=== PATIENT | male | born 1950 | race Caucasian/White ===

== ENCOUNTER 2022-11-19 13:13 | Emergency (ER) | payer OTHER ==
[2022-11-19] MEDS ORDERED: DUONEB 0.5-3 MG/3 ml Neb IH ONE ×2 (14:02→14:15)
[2022-11-19] MEDS ORDERED: solu-MEDROL 125 MG, Sterile H2O 10 ml 2 ML IV ONE ×2 (14:02)
--- NOTE | 2022-11-19 14:08 | ERPHSYRPT ---
- History of Present Illness Time Seen by Provider: 11/19/22 13:18 Source: patient Exam Limitations: no limitations Patient Subjective Stated Complaint: C/O SOB since yesterday that is getting worse. Patient reports chronic bronchitis and is afraid his current symptoms may be bronchitis related. Triage Nursing Assessment: Patient ambulated back to ER without difficulties. Patient slightly SOB with ambulation/exertion but rebounded quickly once on bed. Patient can't lay flat related to SOB though. No cough. Skin tone normal. 02 sats 99% on room air. No wheezing noted. Physician History: 72 years old male with history of COPD presented in the ER with chief complaint of shortness of breath/tickly sensations in the chest with minimal productive cough since [place] felt there was a lot of smoke in the air. Patient reports since then having increasing symptoms of shortness of breath chest tightness but no wheezing or pain. Reports having similar symptoms in the past with COPD exacerbation. Denies any palpitations, fever or chills. No lower extremity swelling or pain. Timing/Duration: yesterday, gradual onset, worse Activities at Onset: activity, rest Severity of Dyspnea-Max: moderate Severity of Dyspnea-Current: mild Possible Cause: allergen exposure, smoke exposure Modifying Factors: Worsens With: exertion Associated Symptoms: cough, chest pain/discomfort, tightness, No edema, No leg swelling, No muscle spasms feet, No muscle spasms hands, No painful breathing, No productive cough Allergies/Adverse Reactions: codeine Adverse Reaction (Verified 11/19/22 13:25) Nausea and Vomiting morphine Adverse Reaction (Verified 11/19/22 13:25) Nausea and Vomiting Home Medications: Albuterol Sulfate [Albuterol Sulfate Hfa] 2 puff PO Q4H PRN PRN 11/19/22 [History] Amlodipine Besylate 5 mg [Norvasc 5 mg] 1 tab PO DAILY 11/19/22 [History] Fluticasone Propion/Salmeterol [Wixela 250-50 Inhub] 1 puff PO BID 11/19/22 [History] Hx Tetanus, Diphtheria Vaccination/Date Given: Yes Hx Influenza Vaccination/Date Given: No Hx Pneumococcal Vaccination/Date Given: Yes Immunizations Up to Date: Yes Travel Risk - International Travel Have you traveled outside of the country in past 3 weeks: No - Coronavirus Screening Are you exhibiting any of the following symptoms?: Yes Symptoms: Shortness of Breath Close contact with a COVID-19 positive Pt in past 14-21 Days: No - Vaccine Status Have you recieved a Covid-19 vaccination: No - Review of Systems Constitutional: No Symptoms Eyes: No Symptoms Ears, Nose, & Throat: No Symptoms Respiratory: Cough, Dyspnea Cardiac: No Symptoms Abdominal/Gastrointestinal: No Symptoms Genitourinary Symptoms: No Symptoms Musculoskeletal: No Symptoms Neurological: No Symptoms Psychological: No Symptoms Endocrine: No Symptoms Hematologic/Lymphatic: No Symptoms - Past Medical History Pertinent Past Medical History: Yes Cardiac History: Hypertension Respiratory History: Bronchitis, COPD GI Medical History: GERD, Gallbladder Disease - Past Surgical History Past Surgical History: Yes Gastrointestinal: Cholecystectomy, Other Male Surgical History: Vasectomy Other Surgical History: node removed from finger, rena surgery - Social History Smoking Status: Former smoker Exposure to second hand smoke: No Drug Use: none Patient Lives Alone: No - Nursing Vital Signs Nursing Vital Signs: Initial Vital Signs Pulse Rate 62 11/19/22 13:23 Respiratory Rate 17 11/19/22 13:23 Blood Pressure 155/85 11/19/22 13:23 O2 Sat by Pulse Oximetry 98 11/19/22 13:23 Pain Scale Pain Intensity 0 - Physical Exam General Appearance: no apparent distress, alert Eye Exam: PERRL/EOMI Ears, Nose, Throat Exam: hearing grossly normal, normal ENT inspection Neck Exam: normal inspection, non-tender, supple, full range of motion Respiratory Exam: normal breath sounds, lungs clear Cardiovascular/Chest Exam: normal heart sounds, regular rate/rhythm Abdominal/Gastrointestinal Exam: soft, normal bowel sounds, No tenderness Extremity Exam: non-tender, normal range of motion, No calf tenderness, No taniya's sign Neurologic Exam: alert, oriented x 3, cooperative Skin Exam: normal color SpO2 Interpretation: normal SpO2: 99 O2 Delivery: Room Air - Course EKG Interpreted by Me: RATE ([id number]), Sinus Rhythm, NORMAL AXIS, NORMAL INTERVALS, NORMAL QRS Ordered Tests: Active Orders 24 hr Category Date Time Status Alloy Weigher STAT Care 11/19/22 14:02 Active EKG-ER Only STAT Care 11/19/22 14:02 Active CHEST 1 VIEW (PORTABLE) Stat Exams 11/19/22 14:02 Taken CBC W DIFF Stat Lab 11/19/22 14:10 Completed CMP Stat Lab 11/19/22 14:10 Completed Lactic Acid Stat Lab 11/19/22 14:12 Completed MAGNESIUM Stat Lab 11/19/22 14:10 Completed NT PRO BNPII Stat Lab 11/19/22 14:10 Completed TROPONIN Q4H Lab 11/19/22 14:10 Completed TROPONIN Q4H Lab 11/19/22 18:15 Ordered TROPONIN Q4H Lab 11/19/22 22:15 Ordered Respiratory Therapy Assessment DAILY RT 11/19/22 14:19 Active Medication Summary Discontinued Medications Generic Name Dose Route Start Last Admin Trade Name Freq PRN Reason Stop Dose Admin Albuterol/Ipratropium 3 ml 11/19/22 14:02 11/19/22 14:16 Ipratropium/Albuterol Sulfate 3 Ml Ampul.Neb IH 11/19/22 14:03 3 ml STAT ONE Administration Albuterol/Ipratropium Confirm 11/19/22 14:15 Ipratropium/Albuterol Sulfate 3 Ml Ampul.Neb Administered 11/19/22 14:16 Dose 3 ml IH .STK-MED ONE Methylprednisolone Sodium 0 mg 11/19/22 14:02 11/19/22 14:15 Succinate 125 mg/ Sterile IV 11/19/22 14:03 125 mg Water 2 ml STAT ONE Administration Methylprednisolone Sodium Succinate Confirm 11/19/22 14:14 Methylprednis Sod Succ 125 Mg/2 Ml Vial Administered 11/19/22 14:15 Dose 125 mg .ROUTE .STK-MED ONE Sterile Water Confirm 11/19/22 14:14 Water For Injection,Sterile 10 Ml Vial Administered 11/19/22 14:15 Dose 10 ml IJ .STK-MED ONE Lab/Rad Data: Laboratory Result Diagrams 11/19/22 14:10 11/19/22 14:10 Laboratory Results 11/19/22 11/19/22 11/19/22 Range/Units 14:12 14:10 14:10 WBC (4.0-10.5) x10^3/uL RBC (4.1-5.6) x10^6/uL Hgb (12.5-18.0) g/dL Hct (42-50) % MCV (78-100) fL MCH (26-32) pg MCHC (32-36) g/dL RDW (11.5-14.0) % Plt Count (150-450) x10^3/uL MPV (7.5-11.0) fL Gran % (36.0-66.0) % Immature Gran % (Auto) (0.00-0.4) % Nucleat RBC Rel Count (0.00-0.1) % Eos # (Auto) (0-0.5) x10^3/uL Immature Gran # (Auto) (0.00-0.03) x10^3u/L Absolute Lymphs (auto) (1.0-4.6) x10^3/uL Absolute Monos (auto) (0.0-1.3) x10^3/uL Absolute Nucleated RBC (0.00-0.01) x10^3u/L Lymphocytes % (24.0-44.0) % Monocytes % (0.0-12.0) % Eosinophils % (0.00-5.0) % Basophils % (0.0-0.4) % Absolute Granulocytes (1.4-6.9) x10^3/uL Basophils # (0-0.4) x10^3/uL Sodium (137-145) mmol/L Potassium (3.5-5.1) mmol/L Chloride (98-107) mmol/L Carbon Dioxide (22-30) mmol/L Anion Gap (5-15) MEQ/L BUN (9-20) mg/dL Creatinine (0.66-1.25) mg/dL Estimated GFR ML/MIN Glucose (74-106) mg/dL Lactic Acid 1.1 (0.4-2.0) Calcium (8.4-10.2) mg/dL Magnesium (1.6-2.3) mg/dL Total Bilirubin (0.2-1.3) mg/dL AST (17-59) U/L ALT (0-50) U/L Alkaline Phosphatase (38-126) U/L Troponin I < 0.012 (0.000-0.034) ng/mL NT-Pro-B Natriuret Pep 31.7 (<300) pg/mL Serum Total Protein (6.3-8.2) g/dL Albumin (3.5-5.0) g/dL 11/19/22 11/19/22 Range/Units 14:10 14:10 WBC 7.2 (4.0-10.5) x10^3/uL RBC 5.07 (4.1-5.6) x10^6/uL Hgb 14.3 (12.5-18.0) g/dL Hct 45.0 (42-50) % MCV 88.8 (78-100) fL MCH 28.2 (26-32) pg MCHC 31.8 L (32-36) g/dL RDW 13.3 (11.5-14.0) % Plt Count 259 (150-450) x10^3/uL MPV 10.1 (7.5-11.0) fL Gran % 72.8 H (36.0-66.0) % Immature Gran % (Auto) 0.3 (0.00-0.4) % Nucleat RBC Rel Count 0.0 (0.00-0.1) % Eos # (Auto) 0.15 (0-0.5) x10^3/uL Immature Gran # (Auto) 0.02 (0.00-0.03) x10^3u/L Absolute Lymphs (auto) 1.21 (1.0-4.6) x10^3/uL Absolute Monos (auto) 0.54 (0.0-1.3) x10^3/uL Absolute Nucleated RBC 0.00 (0.00-0.01) x10^3u/L Lymphocytes % 16.7 L (24.0-44.0) % Monocytes % 7.5 (0.0-12.0) % Eosinophils % 2.1 (0.00-5.0) % Basophils % 0.6 (0.0-0.4) % Absolute Granulocytes 5.27 (1.4-6.9) x10^3/uL Basophils # 0.04 (0-0.4) x10^3/uL Sodium 139 (137-145) mmol/L Potassium 4.0 (3.5-5.1) mmol/L Chloride 104 (98-107) mmol/L Carbon Dioxide 24 (22-30) mmol/L Anion Gap 15.3 H (5-15) MEQ/L BUN 15 (9-20) mg/dL Creatinine 0.87 (0.66-1.25) mg/dL Estimated GFR > 60.0 ML/MIN Glucose 117 H (74-106) mg/dL Lactic Acid (0.4-2.0) Calcium 9.1 (8.4-10.2) mg/dL Magnesium 2.3 (1.6-2.3) mg/dL Total Bilirubin 0.60 (0.2-1.3) mg/dL AST 37 (17-59) U/L ALT 57 H (0-50) U/L Alkaline Phosphatase 102 (38-126) U/L Troponin I (0.000-0.034) ng/mL NT-Pro-B Natriuret Pep (<300) pg/mL Serum Total Protein 7.6 (6.3-8.2) g/dL Albumin 4.4 (3.5-5.0) g/dL - Progress Progress: improved, re-examined Air Movement: good Progress Note: 11/19/22 14:07 72 years old male with history of COPD presented in the ER with chief complaint of shortness of breath/tickly sensations in the chest with minimal productive cough since yesterday [place] and felt there was a lot of smoke in the air. Patient reports since then having increasing symptoms of shortness of breath chest tightness but no wheezing or pain. Reports having similar symptoms in the past with COPD exacerbation. Denies any palpitations, fever or chills. No lower extremity swelling or pain. Patient has minimal to no wheezing, oxygen saturation around 98% on room air. Not in any distress. EKG is normal sinus rhythm with no acute ischemic changes. We will give him DuoNeb and Solu-Medrol, will obtain chest x-ray and labs including troponin. 11/19/22 15:19 Patient is feeling much better on reevaluation and satting around 99% on room air. No wheezing or any distress. Chest x-ray questionable airspace disease on the right. No previous x-rays available to compare. Reviewed by me, official x-ray report is pending. Has normal white count, negative troponins. This has been going on since yesterday, I do not think it is cardiac and do not need to have second troponin. I believe it is COPD exacerbation, will treat with Z-Wojciech short course of steroid and nebs. Recommended outpatient follow-up early next week. Discussed signs symptoms of worsening needing return to ER which he seems understanding. Blood Culture(s) Obtained: No Antibiotics given: Yes Counseled pt/family regarding: lab results, diagnosis, need for follow-up, rad results Medical Desision Making - Diagnostic Testing Diagnostic test were ordered, analyzed, and reviewed by me: Yes Radiological Interpretation: Interpreted by me, Reviewed by me - Departure Departure Disposition: Home Clinical Impression: COPD exacerbation Condition: Stable Critical Care Time: No Referrals: [facility]OSPITAL,'S [Primary Care Provider] - Follow up with PCP 1 day Instructions: Chronic Obstructive Pulmonary Disease, Exacerbation of COPD (DC) Additional Instructions: Follow-up with your primary care for reevaluation. Return to ER for worsening shortness of breath or if having chest pain palpitations etc. Prescriptions: Prednisone 20 mg [Deltasone 20 mg] 60 mg PO DAILY 5 Days #15 tablet Albuterol/Ipratropium 3ml Neb* [DUONEB 0.5-3 MG/3 ml Neb] 3 ml IH Q4-6HPRN PRN 7 Days #30 amp PRN Reason: Shortness Of Breath/Wheezing Azithromycin 250 mg [Zithromax 250 MG TABLET] 250 mg PO ZPACK #6 tablet
[2022-11-19 14:14] LABS: Absolute Neutrophil Ct (ANC) 5.27 x10^3/uL (1.4-6.9); BASOPHIL % 0.6 % (0.0-0.4); Basophil (Absolute #) 0.04 x10^3/uL (0-0.4); Eosinophil % 2.1 % (0.00-5.0); Eosinophil (Absolute #) 0.15 x10^3/uL (0-0.5); Hemoglobin 14.3 g/dL (12.5-18.0); IMMATURE GRAN # 0.02 x10^3u/L (0.00-0.03); IMMATURE GRAN % 0.3 % (0.00-0.4); Lymphocyte (Absolute #) 1.21 x10^3/uL (1.0-4.6); Lymphocytes % 16.7 % (24.0-44.0); Mean Cell Volume 88.8 fL (78-100); Mean Corpuscular Hemoglobin 28.2 pg (26-32); Mean Corpuscular Hgb Concent. 31.8 g/dL (32-36); Mean Platelet Volume 10.1 fL (7.5-11.0); Monocyte (Absolute #) 0.54 x10^3/uL (0.0-1.3); Monocytes % 7.5 % (0.0-12.0); Neutrophil % 72.8 % (36.0-66.0); Platelet Count 259 x10^3/uL (150-450); Red Blood Count 5.07 x10^6/uL (4.1-5.6); Red Cell Distribution Width 13.3 % (11.5-14.0); White Blood Count 7.2 x10^3/uL (4.0-10.5)
[2022-11-19] MEDS ORDERED: solu-MEDROL ONE (14:14)
[2022-11-19] MEDS ORDERED: Sterile H2O 10 ml IJ ONE (14:14)
[2022-11-19 14:30] LABS: ALBUMIN 4.4 g/dL (3.5-5.0); ALKALINE PHOSPHATASE 102 U/L (38-126); ANION GAP 15.3 MEQ/L (5-15); BLOOD UREA NITROGEN 15 mg/dL (9-20); CHLORIDE 104 mmol/L (98-107); Calcium 9.1 mg/dL (8.4-10.2); Carbon Dioxide 24 mmol/L (22-30); Creatinine 1 0.87 mg/dL (0.66-1.25); EST GLOMERULAR FILTRATION RATE > 60.0 ML/MIN; Glucose 117 mg/dL (74-106); MAGNESIUM 2.3 mg/dL (1.6-2.3); SGOT/AST 37 U/L (17-59); SGPT/ALT 57 U/L (0-50); SODIUM 139 mmol/L (137-145); Total Protein 7.6 g/dL (6.3-8.2)
[2022-11-19 15:05] VITALS: BP 153/77; PULSE 61; O2SAT 99
--- NOTE | 2022-11-19 19:14 | XRAY ---
Indication: Cough. Comparison: None Portable apical lordotic chest demonstrates mediastinal, right hilar, and right lung calcified granulomas. Remaining heart and lungs unremarkable. Bony thorax intact. No acute findings.
== END 2022-11-19 16:14 | disposition home or self-care (01) ==
LOC: ED 13:13
DX: J44.1 Chronic obstructive pulmonary disease with (acute) exacerbation (principal); R06.02 Shortness of breath; R05.9 Cough, unspecified; I10 Essential (primary) hypertension; Z79.899 Other long term (current) drug therapy; Z28.310 Unvaccinated for COVID-19
CPT/HCPCS: 36000; 36415; 71045; 80053; 83605; 83735; 83880; 84484; 85025; 93005; 93041; 94640; 96374; 99284; J2930; A9270-GY

== ENCOUNTER 2023-10-21 01:46 | Emergency (ER) | payer OTHER ==
--- NOTE | 2023-10-21 02:09 | ERPHSYRPT ---
- History of Present Illness Time Seen by Provider: 10/21/23 02:08 Historian: patient, family Exam Limitations: no limitations Physician History: This is an obese 73-year-old white male patient who does his doctoring primarily with [facility] and presents with sudden onset of left flank pain that began yesterday. He did not fall or have acute traumatic injury to this area. Patient has never had this type of pain before. It is described as sharp and stabbing. Patient has had a cholecystectomy and Trav fundoplication in the past. Patient has a history of gastroesophageal reflux disease, hypertension, COPD and bronchitis. Patient does not have chest pain and he does not have shortness of breath. Timing/Duration: yesterday Activities at Onset: none Quality: sharpness, stabbing Pain Radiation: back (Left flank) Severity of Pain-Max: moderate Severity of Pain-Current: moderate Modifying Factors: Improves With: nothing Associated Symptoms: back (Left flank), nausea (Secondary to the severity of his pain) Previous symptoms: no prior history, no recent treatment Allergies/Adverse Reactions: codeine Adverse Reaction (Verified 10/21/23 01:47) Nausea and Vomiting morphine Adverse Reaction (Verified 10/21/23 01:47) Nausea and Vomiting Home Medications: Albuterol Sulfate [Albuterol Sulfate Hfa] 2 puff PO Q4H PRN PRN 11/19/22 [History] Amlodipine Besylate 5 mg [Norvasc 5 mg] 1 tab PO DAILY 11/19/22 [History] Aspirin [Aspirin EC] 81 mg PO DAILY 10/21/23 [History] Budesonide/Formoterol Fumarate [Budesonide-Formoterol 160-4.5] 2 puffs IH BID 10/21/23 [History] Meclizine HCl 12.5 mg PO DAILY PRN 10/21/23 [History] Multivitamin [Multivitamins] 1 each PO DAILY 10/21/23 [History] Omeprazole 40 mg PO DAILY 10/21/23 [History] Vit C/E/Zn/Coppr/Lutein/Zeaxan [Preservision Areds 2 Softgel] 1 each PO DAILY 10/21/23 [History] Hx Tetanus, Diphtheria Vaccination/Date Given: Yes Hx Influenza Vaccination/Date Given: No Hx Pneumococcal Vaccination/Date Given: Yes Travel Risk - International Travel Have you traveled outside of the country in past 3 weeks: No - Emerging Infectious Disease Are you exhibiting symptoms associated with any current EIDs: No - Review of Systems Constitutional: No Symptoms Eyes: No Symptoms Ears, Nose, & Throat: No Symptoms Respiratory: No Symptoms Cardiac: No Symptoms Abdominal/Gastrointestinal: Nausea Genitourinary Symptoms: Flank Pain (Left flank) Musculoskeletal: No Symptoms Skin: No Symptoms Neurological: No Symptoms Psychological: No Symptoms Endocrine: No Symptoms Hematologic/Lymphatic: No Symptoms Immunological/Allergic: No Symptoms All Other Systems: Reviewed and Negative - Past Medical History Pertinent Past Medical History: Yes Cardiac History: Hypertension Respiratory History: Bronchitis, COPD GI Medical History: GERD, Gallbladder Disease - Past Surgical History Past Surgical History: Yes Gastrointestinal: Cholecystectomy, Other Male Surgical History: Vasectomy Other Surgical History: node removed from finger, rena surgery - Social History Smoking Status: Former smoker Exposure to second hand smoke: No Drug Use: none Patient Lives Alone: No - Nursing Vital Signs Nursing Vital Signs: Initial Vital Signs Temperature 97.3 F 10/21/23 01:47 Pulse Rate 50 L 10/21/23 01:47 Respiratory Rate 24 10/21/23 01:47 Blood Pressure 154/84 10/21/23 01:47 O2 Sat by Pulse Oximetry 99 10/21/23 01:47 Pain Scale Pain Intensity [Left Lower 9 Back] Pain Intensity 0 - Physical Exam General Appearance: mild distress, alert, anxiety, obese Eye Exam: PERRL/EOMI, eyes nml inspection Ears, Nose, Throat Exam: normal ENT inspection, moist mucous membranes Neck Exam: normal inspection, non-tender, supple, full range of motion Respiratory Exam: normal breath sounds, lungs clear, airway intact, No chest tenderness, No respiratory distress Cardiovascular Exam: regular rate/rhythm, normal heart sounds, normal peripheral pulses Gastrointestinal/Abdomen Exam: soft, normal bowel sounds, tenderness (Left flank) Rectal Exam: not done Back Exam: normal inspection, CVA tenderness (Left side), decreased range of motion Extremity Exam: normal inspection, normal range of motion, pelvis stable Neurologic Exam: alert, oriented x 3, cooperative, sensor technician II-XII nml as tested, sensation nml Skin Exam: normal color, warm, dry Lymphatic Exam: No adenopathy SpO2 Interpretation: normal O2 Delivery: Room Air - Course Nursing assessment & vital signs reviewed: Yes Ordered Tests: Active Orders 24 hr Category Date Time Status IV Insertion STAT Care 10/21/23 02:10 Active ABDOMEN AND PELVIS W/0 CONTRAS [CT] Stat Exams 10/21/23 02:11 Completed AMYLASE Stat Lab 10/21/23 02:42 Completed CBC W DIFF Stat Lab 10/21/23 02:42 Completed CMP Stat Lab 10/21/23 02:42 Completed LIPASE Stat Lab 10/21/23 02:42 Completed UA W/RFX UR CULTURE Stat Lab 10/21/23 04:49 Completed Medication Summary Discontinued Medications Generic Name Dose Route Start Last Admin Trade Name Abelq PRN Reason Stop Dose Admin Sodium Chloride 1,000 mls @ 999 mls/hr 10/21/23 05:08 10/21/23 06:17 Sodium Chloride 0.9% 1000 Ml IV 10/21/23 06:08 Infused .Q1H1M STA Infusion Sodium Chloride Confirm 10/21/23 05:09 Sodium Chloride 0.9% 1000 Ml Administered 10/21/23 05:10 Dose 1,000 mls @ ud .ROUTE .STK-MED ONE Ketorolac Tromethamine 30 mg 10/21/23 02:10 10/21/23 02:16 Ketorolac Tromethamine 30 Mg/Ml Inj IV 10/21/23 02:11 30 mg STAT ONE Administration Ketorolac Tromethamine Confirm 10/21/23 02:16 Ketorolac Tromethamine 30 Mg/Ml Inj Administered 10/21/23 02:17 Dose 30 mg .ROUTE .STK-MED ONE Meperidine HCl 25 mg 10/21/23 02:17 10/21/23 02:27 Meperidine Hcl 25 Mg Syringe IV 10/21/23 02:18 Not Given STAT ONE Meperidine HCl Confirm 10/21/23 02:19 Meperidine Hcl 50 Mg/Ml Carp Administered 10/21/23 02:20 Dose 50 mg .ROUTE .STK-MED ONE Meperidine HCl 25 mg 10/21/23 02:28 10/21/23 02:29 Meperidine Hcl 50 Mg/Ml Carp IV 10/21/23 02:29 25 mg STAT ONE Administration Ondansetron HCl 4 mg 10/21/23 02:10 10/21/23 02:16 Ondansetron Hcl 4 Mg/2 Ml Vial IV 10/21/23 02:11 4 mg STAT ONE Administration Ondansetron HCl Confirm 10/21/23 02:15 Ondansetron Hcl 4 Mg/2 Ml Vial Administered 10/21/23 02:16 Dose 4 mg .ROUTE .STK-MED ONE Orphenadrine Citrate 60 mg 10/21/23 02:17 10/21/23 02:20 Orphenadrine Citrate 60 Mg/2 Ml Vial IV 10/21/23 02:18 60 mg STAT ONE Administration Orphenadrine Citrate Confirm 10/21/23 02:19 Orphenadrine Citrate 60 Mg/2 Ml Vial Administered 10/21/23 02:20 Dose 60 mg .ROUTE .STK-MED ONE Tamsulosin HCl 0.4 mg 10/21/23 05:08 10/21/23 05:10 Tamsulosin Hcl 0.4 Mg Cap PO 10/21/23 05:09 0.4 mg STAT ONE Administration Tamsulosin HCl Confirm 10/21/23 05:09 Tamsulosin Hcl 0.4 Mg Cap Administered 10/21/23 05:10 Dose 0.4 mg .ROUTE .STK-MED ONE Lab/Rad Data: Laboratory Result Diagrams 10/21/23 02:42 10/21/23 02:42 Laboratory Results 10/21/23 10/21/23 10/21/23 Range/Units 04:49 02:42 02:42 WBC 9.0 (4.0-10.5) x10^3/uL RBC 4.88 (4.1-5.6) x10^6/uL Hgb 13.8 (12.5-18.0) g/dL Hct 41.9 L (42-50) % MCV 85.9 (78-100) fL MCH 28.3 (26-32) pg MCHC 32.9 (32-36) g/dL RDW 13.4 (11.5-14.0) % Plt Count 274 (150-450) x10^3/uL MPV 9.8 (7.5-11.0) fL Gran % 68.3 H (36.0-66.0) % Immature Gran % (Auto) 0.4 (0.00-0.4) % Nucleat RBC Rel Count 0.0 (0.00-0.1) % Eos # (Auto) 0.20 (0-0.5) x10^3/uL Immature Gran # (Auto) 0.04 H (0.00-0.03) x10^3u/L Absolute Lymphs (auto) 1.78 (1.0-4.6) x10^3/uL Absolute Monos (auto) 0.79 (0.0-1.3) x10^3/uL Absolute Nucleated RBC 0.00 (0.00-0.01) x10^3u/L Lymphocytes % 19.9 L (24.0-44.0) % Monocytes % 8.8 (0.0-12.0) % Eosinophils % 2.2 (0.00-5.0) % Basophils % 0.4 (0.0-0.4) % Absolute Granulocytes 6.11 (1.4-6.9) x10^3/uL Basophils # 0.04 (0-0.4) x10^3/uL Sodium 138 (135-145) mmol/L Potassium 3.7 (3.5-5.1) mmol/L Chloride 105 (98-107) mmol/L Carbon Dioxide 24 (22-30) mmol/L Anion Gap 13.9 (5-15) MEQ/L BUN 17 (9-20) mg/dL Creatinine 1.02 (0.66-1.25) mg/dL Estimated GFR 78.6 ML/MIN Glucose 145 H (74-106) mg/dL Calcium 8.8 (8.4-10.2) mg/dL Total Bilirubin 0.50 (0.2-1.3) mg/dL AST 42 (17-59) U/L ALT 86 H (0-50) U/L Alkaline Phosphatase 108 (38-126) U/L Serum Total Protein 7.1 (6.3-8.2) g/dL Albumin 4.3 (3.5-5.0) g/dL Amylase 66 (30-110) U/L Lipase 52 (23-300) U/L Urine Color Dark Yellow (Yellow) Urine Appearance Clear (Clear) Urine pH 5.5 (4.6-8.0) Ur Specific [place] 1.025 (1.005-1.030) Urine Protein Trace A (Negative) Urine Glucose (UA) Negative (Negative) mg/dL Urine Ketones Trace A (Negative) Urine Blood Negative (Negative) Urine Nitrite Negative (Negative) Urine Bilirubin Negative (Negative) Urine Urobilinogen 1.0 A (0.2) mg/dL Ur Leukocyte Esterase Negative (Negative) U Hyaline Cast (Auto) NONE SEEN (0-2) /LPF Urine Microscopic RBC 3-5 (0-5) /HPF Urine Microscopic WBC 3-5 (0-5) /HPF Ur Epithelial Cells None Seen (None Seen) /HPF Urine Bacteria None Seen (None Seen) /HPF Urine Culture Reflexed NO (NO) - Progress Progress: improved, pain not gone completely Progress Note: 10/21/23 02:37 My medical decision making and the assignment of moderate complexity to this patient's medical issue is based on review of the patient's past medical history, review of the patient's medication list, review of patient drug allergy list, history present illness and physical findings on examination. The workup in this patient includes placement of intravenous line, infusion of normal saline solution, infusion of Demerol intravenously, infusion of Zofran intravenously, infusion of Toradol and fluids. In addition the patient received intravenous orphenadrine. We also ordered a CBC, CMP, urinalysis, amylase, lipase and CT scan of the abdomen pelvis without contrast. Differential diagnosis includes ureterolithiasis, pyelonephritis, urinary tract infection, pancreatitis, abdominal aortic aneurysm abnormality 10/21/23 06:47 I interpreted the patient's laboratory data results. Based on the laboratory data results, the patient does not have an acute, emergent medical issue. CT scan of the abdomen and pelvis was interpreted by the radiologist and I reviewed the impression. The impression states left distal ureteral calculus approximately 5 mm in size. There is mild hydroureter and mild hydronephrosis indicating obstructive uropathy. Counseled pt/family regarding: lab results, diagnosis, need for follow-up, rad results Medical Desision Making - Independent Historian Additional History obtained from: Spouse - Diagnostic Testing Diagnostic test were ordered, analyzed, and reviewed by me: Yes Radiological Interpretation: Reviewed by me, Teleradiologist Report - Risk of complications The pt has a mod risk of morbidity or mortality based on: Need for prescription drug management - Departure Departure Disposition: Home Clinical Impression: Left ureteral calculus Condition: Stable Critical Care Time: No Referrals: [facility]OSP[facility],'S [Primary Care Provider] - Follow up/PCP as directed Additional Instructions: Drink plenty of fluids. Take your medications as prescribed. Call the [facility] tomorrow, 10/22/2023, to make arrangements to be seen in urology clinic in the next 3 to 5 days. If your pain worsens, you may always return to our emergency department. However, we do not have urology on staff and you may need to go directly to a hospital emergency department to be evaluated and managed by urologist. Prescriptions: Tamsulosin HCl 0.4 mg [Flomax 0.4 MG] 0.4 mg PO DAILY #7 cap Ketorolac Trometh 10 mg Tab [TORAdol 10 MG TABLET] 10 mg PO QID #16 tablet
[2023-10-21 02:10] VITALS: RESP 24; TEMP 97.3
[2023-10-21] MEDS ORDERED: Zofran 4 MG/2 ML VIAL ONE (02:15)
[2023-10-21] MEDS: Zofran 4 MG/2 ML VIAL IV ONE (02:16)
[2023-10-21] MEDS ORDERED: TORAdol 30 mg Injection ONE (02:16)
[2023-10-21] MEDS: TORAdol 30 mg Injection IV ONE (02:16)
[2023-10-21] MEDS ORDERED: Norflex 60 MG/2 ML ONE (02:19)
[2023-10-21] MEDS ORDERED: DEMEROL 50 MG ONE (02:19)
[2023-10-21] MEDS: Norflex 60 MG/2 ML IV ONE (02:20)
[2023-10-21] MEDS: DEMEROL 25MG SYRINGE IV ONE (02:27)
[2023-10-21] MEDS: DEMEROL 50 MG IV ONE (02:29)
[2023-10-21 02:45] LABS: Absolute Neutrophil Ct (ANC) 6.11 x10^3/uL (1.4-6.9); BASOPHIL % 0.4 % (0.0-0.4); Basophil (Absolute #) 0.04 x10^3/uL (0-0.4); Eosinophil % 2.2 % (0.00-5.0); Hematocrit 41.9 % (42-50); Hemoglobin 13.8 g/dL (12.5-18.0); IMMATURE GRAN # 0.04 x10^3u/L (0.00-0.03); IMMATURE GRAN % 0.4 % (0.00-0.4); Lymphocyte (Absolute #) 1.78 x10^3/uL (1.0-4.6); Lymphocytes % 19.9 % (24.0-44.0); Mean Cell Volume 85.9 fL (78-100); Mean Corpuscular Hemoglobin 28.3 pg (26-32); Mean Corpuscular Hgb Concent. 32.9 g/dL (32-36); Mean Platelet Volume 9.8 fL (7.5-11.0); Monocyte (Absolute #) 0.79 x10^3/uL (0.0-1.3); Monocytes % 8.8 % (0.0-12.0); Neutrophil % 68.3 % (36.0-66.0); Platelet Count 274 x10^3/uL (150-450); Red Blood Count 4.88 x10^6/uL (4.1-5.6); Red Cell Distribution Width 13.4 % (11.5-14.0)
[2023-10-21 02:55] LABS: ALBUMIN 4.3 g/dL (3.5-5.0); ANION GAP 13.9 MEQ/L (5-15); BILIRUBIN,TOTAL 0.5 mg/dL (0.2-1.3); Calcium 8.8 mg/dL (8.4-10.2); Creatinine 1 1.02 mg/dL (0.66-1.25); EST GLOMERULAR FILTRATION RATE 78.6 ML/MIN; Potassium 3.7 mmol/L (3.5-5.1); Total Protein 7.1 g/dL (6.3-8.2)
--- NOTE | 2023-10-21 03:56 | XRAY ---
CLINICAL HISTORY: Back pain COMPARISON: None. TECHNIQUE: Axial CT of the abdomen and pelvis was performed with axial images as well as sagittal and coronal reconstruction images without intravenous contrast. DLP 1200.81 mGy*cm. One of the following dose reduction techniques were utilized for this exam: Automated exposure control, adjustment of the mA and/or kV according to patient size, and use of iterative reconstruction. FINDINGS: Abdomen: Average size liver showing multiple small calcific foci within both lobes. The intrahepatic biliary radicals and the bile ducts are normal. Scattered splenic parenchymatous calcifications. No sizable focal lesions. Cholecystectomy surgical clips are noted. The pancreas and adrenal glands are unremarkable. A small stone is seen within the distal pelvic course of the left ureter just proximal to the pelvi-ureteric junction measuring 5 mm with no mild left hydro-ureteric and hydronephrotic changes and mild smudging of the left perinephric fat planes denoting acute obstruction. Normal size left kidney. Right renal lower calyceal small non-obstruating 1 mm stone. Right renal upper pole small cortical cyst measuring 10 mm Bosniak I. Normal size right kidney. Normal left ureter. The ascending colon, the transverse colon, the descending colon, visualized small bowel loops are unremarkable. There is no evidence of significant enlargement of the mesenteric or retroperitoneal lymph nodes. The appendix is unremarkable. No evidence of fat stranding. Scanned lung bases show right basal calcified pulmonary nodules and calcified right hilar lymph nodes; likely post granulomatous. Left diaphragmatic pleural-based prominent fatty tissue/lipoma is noted as well. Pelvis: Underfilled urinary bladder showing mild diffuse mural thickening. The rectosigmoid colon is unremarkable. The prostate is unremarkable. No evidence of pelvic lymphadenopathy. Degenerative changes of the spine are noted. IMPRESSION: 1. Left ureteric distal pelvic course small stone with mild left hydro-ureteric and hydronephrotic changes and mild smudging of the left perinephric fat planes denoting acute obstruction. 2. Right renal lower calyceal tiny stone. 3. Hepatic and splenic scattered parenchymatous calcifications as well as pulmonary and right hilar calcifications; likely post granulomatous. 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 Electronically Signed by: Dea Jc MD. (10/21/2023 03:52:16 EDT)
[2023-10-21 04:58] LABS: Appearance Clear (Clear); Bacteria None Seen /HPF (None Seen); Bilirubin Negative (Negative); Blood Negative (Negative); Epithelial Cells None Seen /HPF (None Seen); Glucose, Urine Negative (Negative); Hyaline Casts NONE SEEN /LPF (0-2); Ketones Trace (Negative); Leukocyte Esterase Negative (Negative); Nitrite Negative (Negative); Ph 5.5 (4.6-8.0); Protein,Urine Dip Trace (Negative); Specific Gravity 1.025 (1.005-1.030)
[2023-10-21 05:00] LABS: ADD URINE CULTURE? NO (NO)
[2023-10-21] MEDS ORDERED: Flomax 0.4 MG ONE (05:09)
[2023-10-21] MEDS ORDERED: Sodium Chloride 0.9% 1000 ML 1,000 ML ONE (05:09)
[2023-10-21] MEDS: Sodium Chloride 0.9% 1000 ML 1,000 ML IV STA (05:10)
[2023-10-21] MEDS: Flomax 0.4 MG PO ONE (05:10)
[2023-10-21 07:06] VITALS: BP 126/67; PULSE 57; O2SAT 96
== END 2023-10-21 07:06 | disposition home or self-care (01) ==
LOC: ED 01:46
DX: N13.2 Hydronephrosis with renal and ureteral calculous obstruction (principal); R10.9 Unspecified abdominal pain; I10 Essential (primary) hypertension; Z79.899 Other long term (current) drug therapy
CPT/HCPCS: 36000; 36415; 74176; 80053; 81001; 82150; 83690; 85025; 96360; 96374; 96375; 99284; J1885; J2175; J2360; J2405; A9270-GY